=== PATIENT | female | born 2000 | race African-American/Black ===

== ENCOUNTER 2024-12-24 11:06 | Emergency (ER) | payer OTHER ==
[~2024-12-24] VITALS: Ht 162.6 cm; Wt 113.3 kg
[2024-12-24 11:19] VITALS: O2SAT 100
[2024-12-24 11:41] VITALS: TEMP 36.9
[2024-12-24] MEDS ORDERED: LORAZEPAM 2MG/ML INJ IV ONE (11:45)
[2024-12-24] MEDS: SODIUM CHLORIDE 0.9% 1,000 ML IV ONE (11:56)
[2024-12-24 11:57] LABS: BASOPHILS % 0.7 % (0.0-2.0); EOSINOPHILS % 0.1 % (0.0-5.0); HEMATOCRIT. 28.9 % (36.0-48.0); HEMOGLOBIN. 9.3 g/dL (12.0-16.0); LYMPHOCYTES % 20.1 % (20.0-50.0); MEAN CORPUSCULAR HEMOGLOBIN 25.6 pg (28.0-32.0); MEAN CORPUSCULAR VOLUME 80.1 fL (81.0-99.0); MEAN PLATELET VOLUME 9.1 fl (7.4-10.4); MONOCYTES % 10.1 % (2.0-8.0); PLATELET 451 x1000/uL (130-400); RED BLOOD CELL COUNT 3.61 mill/uL (4.2-5.4); RED CELL DISTRIBUTION WIDTH 16.3 % (11.6-14.6); WHITE BLOOD COUNT 7.3 x1000/uL (4.5-11.0)
[2024-12-24] MEDS: LORAZEPAM 2MG/ML UD SYRINGE IV SCH (12:00)
[2024-12-24 12:05] LABS: CHLORIDE 102 mEq/L (98-107); POTASSIUM 3.4 mEq/L (3.5-5.1); SODIUM 136 mEq/L (136-145)
[2024-12-24 12:06] LABS: CALCIUM 9.1 mg/dL (8.7-10.4); CARBON DIOXIDE 23 mEq/L (21-32)
[2024-12-24 12:11] LABS: CREATININE 0.8 mg/dL (0.6-1.0); GLUCOSE 90 mg/dL (70-105); UREA NITROGEN BLOOD 6 mg/dL (9-23)
[2024-12-24 13:30] LABS: HCG SCREEN NEGATIVE
[2024-12-24 13:37] VITALS: BP 133/76; PULSE 79; RESP 12; O2SAT 100
== END 2024-12-24 13:56 | disposition home or self-care (01) ==
LOC: ER 11:06
DX: F41.1 Generalized anxiety disorder (principal); R00.0 Tachycardia, unspecified
CPT/HCPCS: 80048; 84703; 85025; 36415; 71045; 93005; 96374; 99285; J2060; J7030; Z7610